=== PATIENT | female | born 1970 | race Caucasian/White ===

== ENCOUNTER 2019-04-22 01:27 | Emergency (ER) | payer OTHER ==
[2019-04-22 01:44] VITALS: BP 130/87; PULSE 71; TEMP 97.6; BMI 23.6
--- NOTE | 2019-04-22 02:00 | PDOC ---
Attending Attestation - Resident Resident Name: Dave Moreira - ED Attending Attestation I have performed the following: I have examined & evaluated the patient, The case was reviewed & discussed with the resident, I agree w/resident's findings & plan - HPI HPI: 04/22/19 01:58 see resident hpi - Physicial Exam PE: 04/22/19 01:58 agree with resident exam - Medical Decision Making 04/22/19 01:58 49-year-old female with ring stuck on the her left ring finger Patient seen at another facility prior to coming here where they attempted to pull it off multiple times without success Rings were cut at the bedside with a ring cutter and removed in entirety Patient finger neurovascularly intact after procedure There are some circular pattern abrasions presents We will apply bacitracin and gauze as well as ice pack and DC
--- NOTE | 2019-04-22 02:04 | PDOC ---
History of Present Illness - General Chief Complaint: Injury Stated Complaint: RING STUCK ON FINGER Time Seen by Provider: 04/22/19 01:57 - History of Present Illness Initial Comments: 04/22/19 01:59 The patient is a 49 year old female with no significant PMH who presents for evaluation of a ring stuck on the left 4th digit. The patient initially presented to an outside facility where multiple attempts were made to pull off the ring prior to presenting to our facility. The patient notes that the digit has become significantly more swollen since the attempts were made. She otherwise denies fevers, chills, SOB, chest pain, nausea, vomiting, abdominal pain, numbness, tingling, or weakness. Past History - Past Medical History Allergies/Adverse Reactions: Allergies Allergy/AdvReac Type Severity Reaction Status Date / Time No Known Allergies Allergy Verified 04/22/19 01:43 COPD: No - Psycho Social/Smoking Cessation Hx Smoking History: Never smoked Have you smoked in the past 12 months: No Information on smoking cessation initiated: No Hx Alcohol Use: No Drug/Substance Use Hx: No Review of Systems - Review of Systems Comments:: 04/22/19 02:01 Constitutional: No fevers, chills, fatigue, malaise HEENT: No Rhinorrhea, nasal congestion, visual changes Cardiovascular: No chest pain, syncope, palpitations, lightheadedness Respiratory: No Cough, SOB, Hemoptysis, Gastrointestinal: No Abdominal pain, Nausea, Vomiting, Constipation, Diarrhea, Melena Genitourinary: No Dysuria, Frequency, Urgency, Hesitancy, Hematuria, Flank pain Musculoskeletal: Ring stuck on the left 4th digit with swelling. No Myalgia, arthralgia Skin: No rashes, itching, bruising, pallor Neurologic: No Headache, Dizziness, Numbness, Weakness, or Tingling Psychiatric: No Hallucinations. No SI or HI *Physical Exam - Vital Signs Last Vital Signs Temp Pulse Resp BP Pulse Ox 97.6 F 71 15 130/87 100 04/22/19 01:39 04/22/19 01:39 04/22/19 01:39 04/22/19 01:39 04/22/19 01:39 - Physical Exam 04/22/19 02:01 General Appearance: Nourished. No Apparent Distress HEENT: No Pharyngeal Erythema, Tonsillar Exudate, Tonsillar Erythema Neck: No Cervical Lymphadenopathy Respiratory/Chest: Lungs Clear, Normal Breath Sounds. No Crackles, Rales, Rhonchi, Wheezing Cardiovascular: Regular Rhythm, Regular Rate. No Murmur, Gallops, Rubs Gastrointestinal/Abdominal: Normal Bowel Sounds, Soft. No Guarding, Rebound, Tenderness Musculoskeletal: No CVA Tenderness Extremity: Two gold rings on the left 4th digit with surrounding edema and skin abrasions. Normal Capillary Refill Integumentary: Normal Color, Dry, Warm Neurologic: Fully Oriented, Alert, Normal Mood/Affect, Normal Response Medical Decision Making - Medical Decision Making 04/22/19 02:02 The patient is a 49 year old female with no significant PMH who presents for evaluation of a ring stuck on the left 4th digit. The patient's rings were removed with a ring cutter. Bacitracin was applied with gauze and ice for comfort. We are comfortable discharging the patient home in stable condition. Patient and family made aware of impression and plan, return precautions discussed including but not limited to worsening pain or symptoms, fevers, or signs of infection, chest pain, respiratory distress, inability to tolerate oral intake, dehydration, syncope, or neurologic changes. The patient is to follow up with PMD as recommended within 1 week, follow up information provided and the patient will call for an appointment. The patient is to take medications as instructed for duration of time and continue with supportive care , avoid triggers and precipitants. Patient is safe for outpatient follow-up. Discharge - Discharge Information Problems reviewed: Yes Clinical Impression/Diagnosis: Finger injury Qualifiers: Encounter type: initial encounter Laterality: left Qualified Code(s): S69.92XA - Unspecified injury of left wrist, hand and finger(s), initial encounter Condition: Stable Disposition: HOME - Admission No - Follow up/Referral Referrals: Amrita Flores MD [Primary Care Provider] - - Patient Discharge Instructions Patient Printed Discharge Instructions: DI for Finger Sprain Additional Instructions: 1) Please follow-up with your primary care doctor in the next 2-3 days. Please call tomorrow to schedule a follow up appointment. If you cannot follow up with your doctor within 1 week please return to the Emergency Department for any urgent issues. 2) If you have any worsening of symptoms or any other concerns, please return to the ER immediately. Return if worsening symptoms including fevers, headache, vomiting, visual or hearing disturbances, abdominal pain, chest pain, shortness of breath, syncope, dehydration, inability to take things by mouth/vomiting, altered mental status, or worsening concerning symptoms. 3) Please continue taking your home medications as directed. Your medications on discharge include Tylenol. Side effects may include upset stomach, abdominal pain, vomiting, or diarrhea. Do not drink alcohol with your medications. - Post Discharge Activity
[2019-04-22] MEDS ORDERED: ACETAMINOPHEN 325 MG TABLET (FP) ONE (02:05)
[2019-04-22] MEDS ORDERED: ACETAMINOPHEN 500 MG TABLET (FP) PO ONE (02:05)
== END 2019-04-22 02:34 | disposition home or self-care (01) ==
LOC: JER 01:27
DX: S69.92XA Unspecified injury of left wrist, hand and finger(s), initial encounter (principal)
CPT/HCPCS: 99281-25

== ENCOUNTER 2020-03-02 19:16 | Emergency (ER) | payer OTHER ==
[2020-03-02 19:34] VITALS: BP 123/73; PULSE 72; TEMP 97.8; BMI 27.3
== END 2020-03-02 20:08 | disposition home or self-care (01) ==
LOC: JER 19:16 → JERFT 19:16
DX: K64.8 Other hemorrhoids (principal)
CPT/HCPCS: 99282-25

== ENCOUNTER 2020-11-06 22:51 | Emergency (ER) | payer OTHER ==
[2020-11-06 22:59] VITALS: BP 134/91; PULSE 71; TEMP 97.7; BMI 23.4
[2020-11-07 01:00] LABS: EPI CELLS 35 /uL (0-25.1); HCG,QUALITATIVE URINE Negative; HYALINE CASTS 3 /uL (0-3.1); PH,URINE 5.5 (5.0-8.0); URINE APPEARANCE CLOUDY; URINE BACTERIA 978 /uL (0-1359); URINE BILIRUBIN NEGATIVE (NEGATIVE); URINE COLOR YELLOW; URINE GLUCOSE (UA) NEGATIVE (NEGATIVE); URINE KETONE NEGATIVE (NEGATIVE); URINE LEUK ESTERASE 3+ (NEGATIVE); URINE NITRITE NEGATIVE (NEGATIVE); URINE PROTEIN NEGATIVE (NEGATIVE); URINE RBC 8 /uL (0-23.9); URINE WBC 216 /uL (0-25.8)
[2020-11-07] MEDS ORDERED: metroNIDAZOLE 500 MG TABLET PO ONE (01:48)
[2020-11-07 01:51] LABS: URINE CRYSTALS MANY /hpf
[2020-11-07] MEDS ORDERED: metroNIDAZOLE 250 MG TABLET ONE (01:57)
== END 2020-11-07 02:20 | disposition home or self-care (01) ==
LOC: JER 22:51
DX: N76.0 Acute vaginitis (principal)
CPT/HCPCS: 36415; 81003; 84703; 87491; 87591; 99283-25

== ENCOUNTER 2022-05-13 21:17 | Emergency (ER) | payer OTHER ==
[2022-05-13 21:26] VITALS: BP 160/89; PULSE 65; RESP 18; TEMP 98.4; BMI 23.4
== END 2022-05-13 22:21 | disposition home or self-care (01) ==
LOC: JERFT 21:17
DX: K02.9 Dental caries, unspecified (principal)
CPT/HCPCS: 99283-25

== ENCOUNTER 2022-08-08 04:16 | Inpatient (IN) | payer OTHER ==
[2022-08-07 09:44] VITALS: BMI 24.0
[2022-08-08] MEDS ORDERED: ONDANSETRON 4 MG/2 ML VIAL IVPUSH PRN ×2 (11:25→13:42)
[2022-08-08] MEDS ORDERED: IBUPROFEN 800 MG/8 ML IJ IVPB PRN ×2 (11:25→13:42)
[2022-08-08] MEDS ORDERED: LACTATED RINGERS SOLUTION 1,000 ML IV SCH (11:30)
[2022-08-08] MEDS ORDERED: DEXAMETHASONE SOD PHOSPHATE 10 MG/1 ML VIAL ONE (11:36)
[2022-08-08] MEDS ORDERED: ROPIVACAINE HCL 0.5% 30ML VIAL ONE (11:36)
[2022-08-08] MEDS ORDERED: MIDAZOLAM HCL 2 MG/2 ML SINGLE DOSE VIAL ONE (11:41)
[2022-08-08] MEDS ORDERED: ceFAZolin SODIUM 1 GM VIAL IVPB ONE (12:20)
[2022-08-08] MEDS ORDERED: oxyCODONE HCL 5 MG TABLET PO PRN (13:42)
[2022-08-08] MEDS ORDERED: IBUPROFEN 600 MG TABLET (FP) PO PRN (13:42)
[2022-08-08] MEDS ORDERED: KETOROLAC TROMETHAMINE 30 MG/1 ML VIAL IVPUSH ONE (13:44)
[2022-08-08] MEDS ORDERED: BISACODYL 5 MG TABLET.DR (FP) PO ONE (13:47)
[2022-08-08] MEDS ORDERED: ACETAMINOPHEN INJECTION 100 ML IVPB ONE (14:11)
[2022-08-08] MEDS ORDERED: ACETAMINOPHEN 1000 MG/100 ML BAG IVPB ONE (14:15)
[2022-08-08] MEDS: oxyCODONE HCL 5 MG TABLET PO PRN ×2 (16:51→23:23)
[2022-08-08] MEDS: ELECTROLYTE-148 SOLN 1,000 ML IV SCH (17:03)
[2022-08-08] MEDS: CEFAZOLIN 1 GM in DEXTROSE 5%-WATER - 50 ML IVPB SCH (21:00)
[2022-08-09] MEDS: ELECTROLYTE-148 SOLN 1,000 ML IV SCH (04:28)
[2022-08-09] MEDS: CEFAZOLIN 1 GM in DEXTROSE 5%-WATER - 50 ML IVPB SCH ×2 (04:28→12:08)
[2022-08-09] MEDS: oxyCODONE HCL 5 MG TABLET PO PRN ×2 (04:28→12:05)
[2022-08-09] MEDS: ACETAMINOPHEN 1000 MG/100 ML BAG IVPB PRN ×2 (08:20→22:50)
[2022-08-09] MEDS ORDERED: BISACODYL 5 MG TABLET.DR (FP) PO ONE (10:00)
[2022-08-09] MEDS: ENOXAPARIN NA (PORCINE) 40 MG/0.4 ML DISP.SYRIN SQ SCH (10:02)
[2022-08-09 10:21] LABS: HEMATOCRIT 32.9 % (32.4-45.2); HEMOGLOBIN 11.1 GM/dL (10.7-15.3); MCH 26.4 pg (25.7-33.7); MCHC 33.8 g/dl (32.0-36.0); MEAN CELL VOLUME 78.1 fl (80-96); MEAN PLT VOLUME 9.5 fl (7.5-11.1); PLATELET COUNT 250 10^3/uL (134-434); RBC 4.21 M/mm3 (3.60-5.2); RDW 24.8 % (11.6-15.6); WHITE BLOOD COUNT 14.3 K/mm3 (4.0-10.0)
[2022-08-09 10:48] LABS: BLOOD UREA NITROGEN 8.9 mg/dL (7-18); CALCIUM 8.4 mg/dL (8.5-10.1)
[2022-08-09 10:52] LABS: CREATININE 0.7 mg/dL (0.55-1.3)
[2022-08-10] MEDS ORDERED: BISACODYL 10 MG SUPP.RECT PR ONE (07:55)
[2022-08-10] MEDS: SIMETHICONE 80 MG TAB.CHEW (FP) PO PRN ×2 (07:58→13:58)
[2022-08-10 08:16] LABS: BASO % 0.4 % (0-2.0); EOS % 0.2 % (0-4.5); HEMATOCRIT 36.7 % (32.4-45.2); LYMPH % 12.8 % (8-40); MCH 26.2 pg (25.7-33.7); MCHC 32.8 g/dl (32.0-36.0); MEAN CELL VOLUME 79.9 fl (80-96); MEAN PLT VOLUME 9.3 fl (7.5-11.1); MONO % 8.2 % (3.8-10.2); NEUT % 78.4 % (42.8-82.8); PLATELET COUNT 266 10^3/uL (134-434); RBC 4.59 M/mm3 (3.60-5.2); RDW 24.7 % (11.6-15.6); WHITE BLOOD COUNT 11.7 K/mm3 (4.0-10.0)
[2022-08-10 09:03] LABS: ANISOCYTOSIS 3+; MACROCYTOSIS 0
[2022-08-10] MEDS: ENOXAPARIN NA (PORCINE) 40 MG/0.4 ML DISP.SYRIN SQ SCH (09:54)
[2022-08-10 13:16] VITALS: BP 134/79; PULSE 90; RESP 15; TEMP 98.4
== END 2022-08-10 14:15 | disposition home or self-care (01) | DRG 519 ==
LOC: J2C 04:16 → J8W 15:50
PROVIDERS: ADMIT Obstetrics & Gynecology; ATTEND Obstetrics & Gynecology
PROC: 0UT70ZZ Resection of Bilateral Fallopian Tubes, Open Approach (ICD-10-PCS; 2022-08-08)
PROC: 0UT90ZL Resection of Uterus, Supracervical, Open Approach (ICD-10-PCS; principal; 2022-08-08 11:00)
DX: D25.9 Leiomyoma of uterus, unspecified (principal); R10.2 Pelvic and perineal pain; N92.6 Irregular menstruation, unspecified
CPT/HCPCS: 36415; 80048; 85025; 85027; 86850; 86900; 86901; 88302-TC; 88307-TC; 94010; 94760; J1100

== ENCOUNTER 2023-06-09 18:17 | Emergency (ER) | payer OTHER ==
[2023-06-09 18:24] VITALS: BMI 23.4
[2023-06-09 19:58] LABS: BASO % 1.1 % (0-2.0); EOS % 1.3 % (0-4.5); HEMATOCRIT 42.6 % (32.4-45.2); HEMOGLOBIN 14.4 GM/dL (10.7-15.3); LYMPH % 22.4 % (8-40); MCH 29.5 pg (25.7-33.7); MCHC 33.9 g/dl (32.0-36.0); MEAN CELL VOLUME 87.2 fl (80-96); MEAN PLT VOLUME 9.6 fl (7.5-11.1); MONO % 6.6 % (3.8-10.2); NEUT % 68.6 % (42.8-82.8); PLATELET COUNT 252 10^3/uL (134-434); RBC 4.88 M/mm3 (3.60-5.2); RDW 13.7 % (11.6-15.6); WHITE BLOOD COUNT 7.1 K/mm3 (4.0-10.0)
[2023-06-09 20:28] LABS: POTASSIUM 3.9 mmol/L (3.5-5.1)
[2023-06-09 20:30] LABS: ALBUMIN 3.4 g/dl (3.4-5.0); CALCIUM 8.5 mg/dL (8.5-10.1)
[2023-06-09 20:31] LABS: BLOOD UREA NITROGEN 19.3 mg/dL (7-18)
[2023-06-09 20:33] LABS: CREATININE 1.2 mg/dL (0.55-1.3)
[2023-06-09 20:35] LABS: BILIRUBIN,TOTAL 0.5 mg/dL (0.2-1); TOT PROT 7.2 g/dl (6.4-8.2)
[2023-06-09] MEDS: AMPICILLIN NA/SULBACTAM NA 3 GM in DEXTROSE 5%-WATER 100 ML IVPB ONE (21:07)
[2023-06-09] MEDS ORDERED: CEFTRIAXONE 2 GM/100 ML BAG IVPB ONE (21:09)
[2023-06-09] MEDS ORDERED: VANCOMYCIN 1 GRAM (PRE-DOCKED) 1,000 MG/250 ML BAG IVPB ONE (21:27)
[2023-06-09] MEDS: VANCOMYCIN 1,000 MG in DEXTROSE 5%-WATER - 250 ML IVPB ONE (21:32)
[2023-06-10] MEDS ORDERED: ACETAMINOPHEN 500 MG TABLET (FP) ONE (00:47)
[2023-06-10] MEDS: ACETAMINOPHEN 500 MG TABLET (FP) PO ONE (00:49)
[2023-06-10 01:36] VITALS: TEMP 98.6
[2023-06-10 03:25] VITALS: BP 130/87; PULSE 61; RESP 18
== END 2023-06-10 03:26 | disposition short-term general hospital (02) ==
LOC: JERFT 18:17 → JER 18:17
PROC: 3E03329 Introduction of Other Anti-infective into Peripheral Vein, Percutaneous Approach (ICD-10-PCS; principal; 2023-06-09)
PROC: 3E033GC Introduction of Other Therapeutic Substance into Peripheral Vein, Percutaneous Approach (ICD-10-PCS; 2023-06-09)
DX: H57.12 Ocular pain, left eye (principal); H05.011 Cellulitis of right orbit; Z20.822 Contact with and (suspected) exposure to COVID-19
CPT/HCPCS: 36415; 70481-TC; 80053; 84703; 85025; 87635; 99285-25; Q9967